=== PATIENT | male | born 1985 | race Caucasian/White ===

== ENCOUNTER 2021-07-10 14:13 | Emergency (ER) | payer OTHER ==
[~2021-07-10] VITALS: Ht 167.6 cm; Wt 65.8 kg
== END 2021-07-10 15:49 | disposition home or self-care (01) ==
LOC: ER 14:13
DX: K29.70 Gastritis, unspecified, without bleeding (principal)

== ENCOUNTER 2021-09-22 03:21 | Emergency (ER) | payer OTHER ==
[~2021-09-22] VITALS: Ht 167.6 cm; Wt 68.0 kg
== END 2021-09-22 08:47 | disposition home or self-care (01) ==
LOC: ER 03:21
DX: K29.70 Gastritis, unspecified, without bleeding (principal); R10.13 Epigastric pain; R11.10 Vomiting, unspecified; A05.9 Bacterial foodborne intoxication, unspecified